=== PATIENT | male | born 1990 | race Caucasian/White ===

== ENCOUNTER 2021-11-16 04:59 | Emergency (ER) | payer SELFPAY ==
[2021-11-16 07:36] VITALS: BP 128/97
--- NOTE | 2021-11-16 07:37 | Emergency Department Report ---
ED Psych HPI - General Chief Complaint: Psych Stated Complaint: SUICIDAL THOUGHTS/MH EVAL Time Seen by Provider: 11/16/21 07:37 Source: patient Mode of arrival: Ambulatory - History of Present Illness Initial Comments: Patient presents because he says he is suicidal. He does not have a plan. He states that he has felt suicidal for years. He has been on previous medications. Previously he had been on Seroquel as well as Depakote. He is not on any medications now. He had previously been in counseling. He is not in counseling now. Patient admits that he is homeless and has no place to go. He admits that he was seen at [facility] twice yesterday. He states that they "kept kicking me out." He then states that they were "not doing their job." He will not answer which [facility] facility he went to. He will not tell me why he was seen at [facility]. He becomes evasive when we start asking him more questions about his visits and why he is wearing 2 hospital bracelets from the same day. It should be noted that the patient was sleeping in the waiting room. When awoken, he stated that he was suicidal and needed to be seen. - Related Data Allergies Allergy/AdvReac Type Severity Reaction Status Date / Time olanzapine [From Zyprexa] Allergy Unknown Verified 11/16/21 07:28 ED Review of Systems ROS: Stated complaint: SUICIDAL THOUGHTS/MH EVAL Other details as noted in HPI Comment: All other systems reviewed and negative Constitutional: denies: fever Eyes: denies: eye discharge ENT: denies: throat pain Respiratory: denies: cough Cardiovascular: denies: chest pain Endocrine: denies: unexplained weight loss Gastrointestinal: denies: abdominal pain Genitourinary: denies: dysuria Musculoskeletal: denies: back pain Skin: denies: rash Neurological: denies: headache Psychiatric: as per HPI Hematological/Lymphatic: denies: easy bruising ED Past Medical Hx - Past Medical History Hx Psychiatric Treatment: Yes (Not current) - Family History Family history: no significant, other (Negative for suicide completion) ED Physical Exam - General Limitations: No Limitations, Other (Pulse ox noted and normal) General appearance: alert, in no apparent distress, other (Unkempt) - Head Head exam: Present: atraumatic, normocephalic - Eye Eye exam: Present: normal appearance, PERRL. Absent: scleral icterus - ENT ENT exam: Present: mucous membranes moist, normal external ear exam - Neck Neck exam: Present: normal inspection. Absent: meningismus - Respiratory Respiratory exam: Present: normal lung sounds bilaterally. Absent: respiratory distress - Cardiovascular Cardiovascular Exam: Present: regular rate, normal rhythm - GI/Abdominal GI/Abdominal exam: Present: soft. Absent: tenderness - Extremities Exam Extremities exam: Present: normal capillary refill - Back Exam Back exam: Absent: CVA tenderness (R), CVA tenderness (L) - Neurological Exam Neurological exam: Present: alert, oriented X3, CN II-XII intact, normal gait. Absent: motor sensory deficit - Psychiatric Psychiatric exam: Present: normal affect (He is not withdrawn.), normal mood, suicidal ideation (No plan) - Skin Skin exam: Present: warm, dry ED Course Vital Signs 11/16/21 07:32 Temperature 98.2 F Pulse Rate 82 Respiratory 18 Rate Blood Pressure 128/97 [Right] O2 Sat by Pulse 100 Oximetry - Reevaluation(s) Reevaluation #1: 11/16/21 07:37 Labs ordered. 11/16/21 07:45 Old records requested from [facility]. Old records reviewed here. Reevaluation #2: 11/16/21 07:52 Patient walked out. He did not want to sign any paperwork apparently. He eloped. Security apparently was in the process of getting ready to want him and dressed him out. He stated that he did not want to be here. He reported apparently that he was in the wrong hospital. He did not want to be seen. I was not made aware of this until after the patient had left. ED Medical Decision Making - Medical Decision Making Patient had been sleeping in our emergency department. When awoken, he stated he was suicidal and needed to be seen. He had been seen recently at the same hospital twice in the same day. I tried to question why he had been suicidal for over a year and what was different today that prompted him to seek medical care. He became very evasive about his history and his recent hospital visits. He had a normal mentation. He had a normal affect. He was not withdrawn. He had good eye contact. Clinically, he seemed stable. He was not responding to extraneous stimuli. He denied auditory and visual hallucinations. Again, he did not have any specific plan for suicide. I had told him that we were going to request old records from [facility] to try to determine what was done. Ultimately, he eloped. I do not believe that he was truly suicidal, but we were going to evaluate his laboratory values and have behavioral health see him. He was here voluntarily. Critical Care Time: No Critical care attestation.: If time is entered above; I have spent that time in minutes in the direct care of this critically ill patient, excluding procedure time. ED Disposition Clinical Impression: Suicidal thoughts Disposition: 07 LEFT AWOL/ELOPED Is pt being admited?: No Condition: Stable
== END 2021-11-16 09:51 | disposition left against medical advice (07) ==
LOC: ED 04:59
DX: R45.851 Suicidal ideations (principal); Z88.8 Allergy status to other drugs, medicaments and biological substances
CPT/HCPCS: 99281

== ENCOUNTER 2021-11-16 09:48 | Emergency (ER) | payer MEDICAID ==
--- NOTE | 2021-11-16 09:56 | Emergency Department Report ---
ED Psych HPI - General Chief Complaint: Psych Stated Complaint: SI Time Seen by Provider: 11/16/21 09:49 Source: patient Mode of arrival: Ambulatory - History of Present Illness Initial Comments: Patient presents with suicidal ideation. He states that he has been suicidal for over a year. He does not have a specific plan. He was seen earlier today by myself. He was here voluntarily and wanted help. He then eloped before his treatment could be initiated. He is now back and states that he wants help. He does state that he had been at [facility] twice yesterday and they "kicked him out." He states that they were "not doing their job." I asked him why he left when I had ordered blood work and offered to get him help previously. He said "because you were bothering me." I asked how we were bothering him. He stated "you all weren't doing your job." I confronted him about that and he stated "never mind, you were doing your job." He states that he wants help. That is why he came back. - Related Data Home Medications Medication Instructions Recorded Confirmed Last Taken No Known Home Medications [No 11/16/21 11/16/21 Unknown Reported Home Medications] Allergies Allergy/AdvReac Type Severity Reaction Status Date / Time olanzapine [From Zyprexa] Allergy Unknown Verified 11/16/21 10:14 ED Review of Systems ROS: Stated complaint: SI Other details as noted in HPI Comment: All other systems reviewed and negative Constitutional: denies: fever Eyes: denies: vision change ENT: denies: throat pain Respiratory: denies: cough Cardiovascular: denies: chest pain Endocrine: denies: unexplained weight loss Gastrointestinal: denies: abdominal pain Genitourinary: denies: dysuria Musculoskeletal: denies: back pain Skin: denies: rash Neurological: denies: headache Psychiatric: as per HPI Hematological/Lymphatic: denies: easy bruising ED Past Medical Hx - Past Medical History Hx Psychiatric Treatment: Yes (Not current) - Family History Family history: other (Negative for suicide completion) - Medications Home Medications: Home Medications Medication Instructions Recorded Confirmed Last Taken Type No Known Home Medications [No 11/16/21 11/16/21 Unknown History Reported Home Medications] ED Physical Exam - General Limitations: No Limitations, Other (Pulse ox noted and normal) General appearance: alert, in no apparent distress, other (Disheveled) - Head Head exam: Present: atraumatic, normocephalic - Eye Eye exam: Present: normal appearance, PERRL, EOMI. Absent: scleral icterus - ENT ENT exam: Present: mucous membranes moist, normal external ear exam - Neck Neck exam: Present: normal inspection. Absent: meningismus - Respiratory Respiratory exam: Present: normal lung sounds bilaterally. Absent: respiratory distress - Cardiovascular Cardiovascular Exam: Present: regular rate, normal rhythm - GI/Abdominal GI/Abdominal exam: Present: soft - Extremities Exam Extremities exam: Present: normal capillary refill - Back Exam Back exam: Absent: CVA tenderness (R), CVA tenderness (L) - Neurological Exam Neurological exam: Present: alert, oriented X3, CN II-XII intact, normal gait. Absent: motor sensory deficit - Psychiatric Psychiatric exam: Present: suicidal ideation - Skin Skin exam: Present: warm, dry ED Course Vital Signs 11/16/21 11/16/21 09:55 10:14 Temperature 98.2 F Pulse Rate 56 L Respiratory 16 16 Rate Blood Pressure 144/93 O2 Sat by Pulse 100 100 Oximetry - Reevaluation(s) Reevaluation #1: 11/16/21 09:55 At this time, patient was placed on a hold. Labs were ordered. We had still not received old records from [facility]. Reevaluation #2: 11/16/21 12:42 Psych evaluation is pending. ED Medical Decision Making - Lab Data Result diagrams: 11/16/21 09:58 11/16/21 09:58 - Medical Decision Making Patient presents with reports of suicidal ideation. He does not have a specific plan. He does not seem to be responding to extraneous stimuli. There is no evidence of acute psychosis. He is not homicidal. There is no obvious metabolic derangement. Urine drug screen is still pending although that would not preclude psychiatric disposition. We are waiting on psychiatric services to evaluate the patient. Critical Care Time: No Critical care attestation.: If time is entered above; I have spent that time in minutes in the direct care of this critically ill patient, excluding procedure time. ED Disposition Clinical Impression: Suicidal ideation, Homeless Disposition: 30 STILL A PATIENT Is pt being admited?: No Condition: Stable Referrals: DAYANA WARD MD [Primary Care Provider] - 3-5 Days
[2021-11-16 10:31] LABS: Alanine Aminotransferase 36 units/L (7-56); BUN/Creatinine Ratio 8; Blood Urea Nitrogen 7 mg/dL (9-20); Calcium 9.4 mg/dL (8.4-10.2); Hemolysis Index 13
[2021-11-16 10:38] LABS: Basophils # (Auto) 0.1 K/mm3 (0.0-0.1); Eosinophils # (Auto) 0.3 K/mm3 (0.0-0.4); Eosinophils % (Auto) 3.4 % (0.0-4.3); Hemoglobin 14.4 gm/dl (11.8-15.2); Lymphocytes # (Auto) 2.6 K/mm3 (1.2-5.4); Lymphocytes % (Auto) 30.3 % (13.4-35.0); Mean Corpuscular HGB Conc 34 % (32-34); Mean Corpuscular Volume 90 fl (84-94); Monocytes # (Auto) 0.8 K/mm3 (0.0-0.8); Monocytes % (Auto) 9.2 % (0.0-7.3); Platelet Count 294 K/mm3 (140-440); Red Blood Count 4.67 M/mm3 (3.65-5.03); Red Cell Distribution Width 14.3 % (13.2-15.2)
[2021-11-16 13:32] LABS: Amphetamine Screen,Urine Negative; Benzodiazepines Screen,Urine Negative; Cannabinoid Screen,Urine Negative; Cocaine Screen,Urine Negative; Methadone Screen,Urine Negative; Opiate Screen,Urine Negative
[2021-11-17 04:23] VITALS: BP 116/82
--- NOTE | 2021-11-17 10:17 | Consultation ---
History of Present Illness - Reason for Consult Consult date: 11/17/21 Reason for consult: SI - History of Present Psychiatric Illness HPI: Patient presents with suicidal ideation. He states that he has been suicidal for over a year. He does not have a specific plan. He was seen earlier today by myself. He was here voluntarily and wanted help. He then eloped before his treatment could be initiated. He is now back and states that he wants help. He does state that he had been at [facility] twice yesterday and they "kicked him out." He states that they were "not doing their job." I asked him why he left when I had ordered blood work and offered to get him help previously. He said "because you were bothering me." I asked how we were bothering him. He stated "you all weren't doing your job." I confronted him about that and he stated "never mind, you were doing your job." He states that he wants help. That is why he came back. The patient was seen today. He is evasive. His symptoms are vague. He is calm. He says he is here "because people are messing with me." When asking the patient who was messing with him, he turns his head and says "people." I ask the patient was he suicidal or homicidal, he says "cause people are messing with me." The patient says he's been feeling like this "for awhile" when asked. He says he is not seeing a psychiatrist, but reports a history of Bipolar, and schizophrenia. He says he takes seroquel, depakote, and zoloft but been off for months. I ask the patient why was he not seeing a psychiatrist or been on his meds, he ignores me. He denies hallucinations of any kind. He denies any illicit drug use, alcohol or nicotine. The patient says he is homeless. PAST PSYCHIATRIC HISTORY Diagnoses: schizophrenia, bipolar Suicide attempts or Self-harm behavior: Denies Prior psychiatric hospitalizations: Yes Substance Abuse history: Denies Previous psychiatric medications tried: seroquel, zoloft depakote Outpatient treatment: Denies PAST MEDICAL HISTORY: None reported Family Psychiatric History: None reported or documented SOCIAL HISTORY Living arrangement: Homeless Marital status: Single Disabled REVIEW OF SYSTEMS Constitutional: Negative for weight loss ENT: Negative for stridor Respiratory: Negative for cough or hemoptysis All other systems reviewed and are negative MENTAL STATUS EXAMINATION General Appearance and Behavior: Age appropriate, good hygiene, wearing appropriate clothes, fair eye contact, calm, cooperative Cooperation: Participating/engaged, but Guarded Psychomotor Behavior: Psychomotor normal Mood: "okay" Affect and affective range: congruent with stated mood Thought Process: Goal directed Thought Content: Reality oriented Speech: normal tone and pace Suicidal Ideation: Denies Homicidal Ideation: Denies Hallucinations: Denies Delusions: None Impulse Control: Limited Insight and Judgment: Limited insight and judgment Memory: Limited Attention: Divided Orientation: Alert, oriented Assessment and Plan Hx of Bipolar Treatment Plan d/c 1013 Seroquel 50mg po BID Zoloft 25mg po daily Depakote DR 125mg po BID Medical: per primary Disposition: Do not recommend acute psychiatric inpatient treatment at this time. The patient understands that if SI/HI or any fear of endangerment are to arise he is to seek immediate assistance The intake specialist to give the patient all necessary resources including custodial info The patient to follow up with outpatient psych in 7 to 14 days upon discharge Case staffed with Dr. Ly Medications and Allergies Allergies Allergy/AdvReac Type Severity Reaction Status Date / Time olanzapine [From Zyprexa] Allergy Unknown Verified 11/16/21 10:14 Home Medications Medication Instructions Recorded Confirmed Last Taken Type Divalproex Dr [DepaKOTE DR] 125 mg PO BID #60 tablet 11/17/21 Unknown Rx Quetiapine Fumarate [SEROquel] 50 mg PO BID #60 tab 11/17/21 Unknown Rx Sertraline [Zoloft] 50 mg PO QDAY #30 11/17/21 Unknown Rx Mental Status Exam - Vital signs Last Vital Signs Temp 97.6 F 11/17/21 03:46 Pulse 71 11/17/21 03:46 Resp 16 11/17/21 03:46 BP 116/82 11/17/21 03:46 Pulse Ox 100 11/17/21 09:09 Results Result Diagrams: 11/16/21 09:58 11/16/21 09:58 Abnormal lab results 11/16/21 11/16/21 Range/Units 09:58 09:58 Mower % (Auto) 9.2 H (0.0-7.3) % BUN 7 L (9-20) mg/dL Glucose 101 H (75-100) mg/dL Alkaline Phosphatase 187 H (35-129) units/L All other labs normal.
--- NOTE | 2021-11-17 10:51 | Emergency Department Report ---
Blank Doc - Documentation Documentation: Patient was cleared by psychiatric services. [facility]
== END 2021-11-17 11:59 | disposition still patient (30) ==
LOC: ED 09:48
DX: R45.851 Suicidal ideations (principal); Z59.00 Homelessness unspecified; Z20.822 Contact with and (suspected) exposure to COVID-19
CPT/HCPCS: 36415; 80053; 80307; 85025; 99284; U0003; 80320; G0480